=== PATIENT | female | born 1975 | race African-American/Black ===

== ENCOUNTER 2024-10-21 22:48 | Emergency (ER) | payer OTHER ==
[~2024-10-21] VITALS: Ht 175.3 cm; Wt 98.0 kg
[2024-10-21 23:30] VITALS: O2SAT 99
[2024-10-22] MEDS ORDERED: NAPR-681 MT (01:49)
[2024-10-22] MEDS: ACETAMINOPHEN 325MG TABLET PO ONE (02:33)
[2024-10-22 02:36] VITALS: BP 146/83; PULSE 73; RESP 19; TEMP 36.6; O2SAT 99
[2024-10-22 02:59] VITALS: TEMP 97.9
[2024-10-22] MEDS: ACETAMINOPHEN 325MG TABLET PO NR (02:59)
== END 2024-10-22 02:50 | disposition home or self-care (01) ==
LOC: ER 22:48
DX: S93.601A Unspecified sprain of right foot, initial encounter (principal); M20.11 Hallux valgus (acquired), right foot; Z90.710 Acquired absence of both cervix and uterus; X58.XXXA Exposure to other specified factors, initial encounter; Y93.01 Activity, walking, marching and hiking; Y92.89 Other specified places as the place of occurrence of the external cause; Y99.8 Other external cause status
CPT/HCPCS: 73610; 73630; 99284